=== PATIENT | female | born 1945 | race Caucasian/White ===

== ENCOUNTER 2018-01-24 07:31 | Day surgery (SDC) | payer MEDICARE, OTHER ==
[~2018-01-24 07:31] MED LIST: ASPI325 PO; ATOR10 PO; Bactrim Ds Tab1 EACH PO; FISH1000 PO; LOSA50 PO; METO25 PO; OLME20-12. PO; OMEP20ER PO; PREMPRO PO; Prilosec Otc20 MG PO
[2018-01-29 14:33] LABS: Performing Lab SYMBIODX; Test Name TISSUE BLOCK
[2018-02-04 09:42] LABS: Result SEE PATHOTH RESULTS
== END 2018-01-24 22:57 | disposition home or self-care (01) ==
LOC: MOI US 07:31
PROVIDERS: Internal Medicine
PROC: 0HBT3ZX Excision of Right Breast, Percutaneous Approach, Diagnostic (ICD-10-PCS; principal; 2018-01-24)
DX: C50.811 Malignant neoplasm of overlapping sites of right female breast (principal); Z17.0 Estrogen receptor positive status [ER+]
CPT/HCPCS: 19083; 77065; 88305; 88360; 88363; 88374; A4648; G0279

== ENCOUNTER 2019-08-18 08:34 | Day surgery (SDC) | payer MEDICARE, OTHER ==
[~2019-08-18] VITALS: Ht 165.1 cm; Wt 84.1 kg
[2019-08-18] MEDS ORDERED: Aldactone25 MG (09:28)
== END 2019-08-18 11:08 | disposition home or self-care (01) ==
LOC: ORSCSDS 08:34
DX: Z12.11 Encounter for screening for malignant neoplasm of colon (principal); Z86.010 Personal history of colon polyps; D12.4 Benign neoplasm of descending colon; D12.2 Benign neoplasm of ascending colon; K64.8 Other hemorrhoids; K57.30 Diverticulosis of large intestine without perforation or abscess without bleeding; K21.9 Gastro-esophageal reflux disease without esophagitis; I10 Essential (primary) hypertension; F41.9 Anxiety disorder, unspecified; Z87.898 Personal history of other specified conditions; I25.2 Old myocardial infarction; Z87.891 Personal history of nicotine dependence; Z79.899 Other long term (current) drug therapy
CPT/HCPCS: 88305; J2704; J7120

== ENCOUNTER 2022-01-10 08:25 | Day surgery (SDC) | payer MEDICARE, OTHER ==
[~2022-01-10] VITALS: Ht 165.1 cm; Wt 79.1 kg
[~2022-01-10 08:25] MED LIST changes: +Aldactone25 MG
== END 2022-01-10 09:41 | disposition home or self-care (01) ==
LOC: ORSCSDS 08:25
PROVIDERS: Anesthesiology
PROC: 3E0R33Z Introduction of Anti-inflammatory into Spinal Canal, Percutaneous Approach (ICD-10-PCS; principal; 2022-01-10 09:30)
DX: M51.16 Intervertebral disc disorders with radiculopathy, lumbar region (principal); I10 Essential (primary) hypertension; K21.9 Gastro-esophageal reflux disease without esophagitis; J45.909 Unspecified asthma, uncomplicated; M48.061 Spinal stenosis, lumbar region without neurogenic claudication; Z87.891 Personal history of nicotine dependence; Z79.899 Other long term (current) drug therapy
CPT/HCPCS: J1040

== ENCOUNTER 2022-02-20 06:51 | Day surgery (SDC) | payer MEDICARE, OTHER ==
[~2022-02-20] VITALS: Ht 165.1 cm; Wt 78.9 kg
--- NOTE | 2022-02-20 08:09 | NUR ---
02/20/22 0809 Orly Lobo PT DIASTOLIC BP LOW, ASYMPTOMATIC,MD AWARE, NO FURTHER ORDERS GIVEN.
== END 2022-02-20 08:18 | disposition home or self-care (01) ==
LOC: ORSCSDS 06:51
PROVIDERS: Anesthesiology
PROC: 3E0R33Z Introduction of Anti-inflammatory into Spinal Canal, Percutaneous Approach (ICD-10-PCS; principal; 2022-02-20 08:00)
DX: M96.1 Postlaminectomy syndrome, not elsewhere classified (principal); M54.16 Radiculopathy, lumbar region; M48.00 Spinal stenosis, site unspecified; J45.909 Unspecified asthma, uncomplicated; I10 Essential (primary) hypertension; K21.9 Gastro-esophageal reflux disease without esophagitis; Z86.16 Personal history of COVID-19; Z87.891 Personal history of nicotine dependence; Z79.899 Other long term (current) drug therapy
CPT/HCPCS: J1040